=== PATIENT | male | born 1990 | race Caucasian/White ===

== ENCOUNTER → 2022-04-29 09:31 | Outpatient (BNVA) | payer SELFPAY | PROVIDERS: Visit Provider Nurse Practitioner Psychiatric/Mental Health | DX: Z51.81 Encounter for therapeutic drug level monitoring (principal); F11.20 Opioid dependence, uncomplicated | CPT/HCPCS: 80305; 99202 ==

== ENCOUNTER 2022-05-06 10:11 | Outpatient (REF) | payer OTHER, SELFPAY ==
[2022-05-06 11:26] LABS: Alanine Aminotransferase 20 U/L (0-40); Albumin Level 4.8 g/dL (3.5-5.0); Alkaline Phosphatase 55 U/L (39-117); Anion Gap 17 (12-20); Aspartate Amino Transferase 19 U/L (5-37); Bilirubin Total 0.8 mg/dL (0.0-1.0); Blood Urea Nitrogen 16 mg/dL (9-16); Calcium 10.1 mg/dL (8.4-10.2); Carbon Dioxide 26 mmol/L (22-29); Chloride 101 mmol/L (96-108); Estimated Glomerular Filt Rate > 60; Glucose Random 85 mg/dL (60-115); Potassium 4.5 mmol/L (3.3-5.1); Sodium 139 mmol/L (135-145)
[2022-05-06 11:51] LABS: HBc Num1 0.06 S/CO (0.00-0.79); HBsAGNum1 0.36 S/CO (0.00-0.99); HIV AB/AG Nonreactive (Nonreactive); HIV Num 1 0.06 S/CO (0.00-0.99); Hepatitis A Antibody IgM 0.15 Index (0-0.79); Hepatitis B Core Antibody Nonreactive (Nonreactive); Hepatitis B Surface Antigen Negative (Negative); ~HepC Num1 0.06 S/CO (0.00-0.79); ~Hepatitis A Antibody IgM Nonreactive (Nonreactive); ~Hepatitis B Surface Antibody REACTIVE (Nonreactive); ~Hepatitis C Antibody Nonreactive (Nonreactive)
== END 2022-05-06 10:12 | disposition home or self-care (01) ==
LOC: HO.LAB 10:11
PROVIDERS: Nurse Practitioner Psychiatric/Mental Health; Visit Provider Internal Medicine
DX: F11.20 Opioid dependence, uncomplicated (principal); Z51.81 Encounter for therapeutic drug level monitoring; Z79.899 Other long term (current) drug therapy
CPT/HCPCS: 36415; 80053; 86704; 86706; 86709; 86803; 87340; 87389; 99212

== ENCOUNTER → 2022-05-13 09:21 | Outpatient (BNVA) | payer OTHER, SELFPAY | PROVIDERS: Visit Provider Nurse Practitioner Psychiatric/Mental Health | DX: Z51.81 Encounter for therapeutic drug level monitoring (principal); F11.20 Opioid dependence, uncomplicated | CPT/HCPCS: 80305; 99212 ==

== ENCOUNTER → 2022-05-19 09:12 | Outpatient (BNVA) | payer OTHER, SELFPAY | PROVIDERS: Visit Provider Nurse Practitioner Psychiatric/Mental Health | DX: F11.20 Opioid dependence, uncomplicated (principal) | CPT/HCPCS: 99212 ==

== ENCOUNTER → 2022-05-26 09:21 | Outpatient (BNVA) | payer OTHER, SELFPAY | PROVIDERS: Visit Provider Nurse Practitioner Psychiatric/Mental Health | DX: Z51.81 Encounter for therapeutic drug level monitoring (principal); F11.20 Opioid dependence, uncomplicated | CPT/HCPCS: 99212 ==

== ENCOUNTER → 2022-06-08 09:22 | Outpatient (BNVA) | payer OTHER, SELFPAY | PROVIDERS: Visit Provider Nurse Practitioner Psychiatric/Mental Health | DX: Z51.81 Encounter for therapeutic drug level monitoring (principal); F11.20 Opioid dependence, uncomplicated | CPT/HCPCS: 80305; 99212 ==

== ENCOUNTER → 2022-06-29 10:34 | Outpatient (BNVA) | payer OTHER, SELFPAY | PROVIDERS: Visit Provider Nurse Practitioner Psychiatric/Mental Health | DX: F11.20 Opioid dependence, uncomplicated (principal) | CPT/HCPCS: 80305; 99212 ==

== ENCOUNTER → 2022-10-26 10:18 | Outpatient (BNVA) | payer OTHER, SELFPAY | PROVIDERS: Visit Provider Nurse Practitioner Psychiatric/Mental Health | DX: F14.20 Cocaine dependence, uncomplicated (principal); Z51.81 Encounter for therapeutic drug level monitoring; Z79.899 Other long term (current) drug therapy | CPT/HCPCS: 80305; 99212 ==

== ENCOUNTER → 2022-11-02 10:08 | Outpatient (BNVA) | payer OTHER, SELFPAY | PROVIDERS: Visit Provider Nurse Practitioner Psychiatric/Mental Health | DX: Z51.81 Encounter for therapeutic drug level monitoring (principal); F11.20 Opioid dependence, uncomplicated | CPT/HCPCS: 80305; 99212 ==

== ENCOUNTER → 2022-11-08 10:16 | Outpatient (BNVA) | payer OTHER, SELFPAY | PROVIDERS: Visit Provider Nurse Practitioner Psychiatric/Mental Health | DX: F11.90 Opioid use, unspecified, uncomplicated (principal); Z51.81 Encounter for therapeutic drug level monitoring; Z79.899 Other long term (current) drug therapy | CPT/HCPCS: 99212 ==

== ENCOUNTER → 2022-11-15 11:07 | Outpatient (BNVA) | payer OTHER, SELFPAY | PROVIDERS: Visit Provider Nurse Practitioner Psychiatric/Mental Health | DX: F11.20 Opioid dependence, uncomplicated (principal); Z51.81 Encounter for therapeutic drug level monitoring; Z79.899 Other long term (current) drug therapy | CPT/HCPCS: 99212 ==

== ENCOUNTER → 2022-11-21 11:15 | Outpatient (BNVA) | payer OTHER, SELFPAY | PROVIDERS: Visit Provider Nurse Practitioner Psychiatric/Mental Health | DX: Z51.81 Encounter for therapeutic drug level monitoring (principal); F11.20 Opioid dependence, uncomplicated | CPT/HCPCS: 80305; 99212 ==

== ENCOUNTER → 2022-11-28 11:13 | Outpatient (BNVA) | payer OTHER, SELFPAY | PROVIDERS: Visit Provider Nurse Practitioner Psychiatric/Mental Health | DX: F11.20 Opioid dependence, uncomplicated (principal) | CPT/HCPCS: 99212 ==

== ENCOUNTER → 2022-12-13 10:13 | Outpatient (BNVA) | payer OTHER, SELFPAY | PROVIDERS: Visit Provider Nurse Practitioner Psychiatric/Mental Health | DX: Z51.81 Encounter for therapeutic drug level monitoring (principal); F11.20 Opioid dependence, uncomplicated | CPT/HCPCS: 80305; 99212 ==

== ENCOUNTER → 2023-01-02 10:56 | Outpatient (BNVA) | payer OTHER, SELFPAY | PROVIDERS: Visit Provider Nurse Practitioner Psychiatric/Mental Health | DX: Z51.81 Encounter for therapeutic drug level monitoring (principal); F11.20 Opioid dependence, uncomplicated | CPT/HCPCS: 99212 ==

== ENCOUNTER 2023-01-17 11:14 | Outpatient (AMB) | payer OTHER, SELFPAY ==
--- NOTE | 2023-01-17 11:14 | MHC.OFFVIS ---
Intake Vital Signs 01/17/23 11:21 BP 118/64 Blood Pressure Location Lt radial Pulse 62 Pulse Source Pulse Oximeter Pulse Oximetry (%) 97 Oxygen Delivery Method Room Air Intake Visit Reasons: MAT Visit Intake Note: the patient presents for a mat visit Director Of Category Management Required: No Allergies No Known Allergies Allergy (Unverified 01/17/23 11:16) Do you need a note to return to daycare/school/sports/work: No HPI MAT Visit HPI Details Patient presents for follow-up. Still at the [facility], reports that he is up next for placement at a [facility]. Has noted a change in his mood since starting sertraline, feeling less indifferent in actually brighter and looking forward to things. Doing well with current Suboxone dose Review of Systems Const Reports as per HPI and Reports no additional complaints Physical Exam Vital Signs: Last Vital Signs Pulse 62 01/17/23 11:21 BP 118/64 01/17/23 11:21 Pulse Ox 97 01/17/23 11:21 Oxygen Delivery Method Room Air 01/17/23 11:21 Const General: cooperative and healthy appearing Psych Appearance: well kempt Speech and movement: Clear speech present Affect: normal affect Attitude: cooperative Thought process: Normal thought process present Thought content: Normal thought content present Insight: Good insight present (Psych) Judgement: Good judgement present (Psych) Results AMB 14 Panel Urine Drug Screen Urine Marijuana (THC) Negative Last Edit by Claudia Javed CMA on 01/17/23 11:22 Urine Cocaine Negative Last Edit by Claudia Javed CMA on 01/17/23 11:22 Urine Morphine Negative Last Edit by Claudia Javed CMA on 01/17/23 11:22 Urine Methamphetamine Negative Last Edit by Claudia Javed CMA on 01/17/23 11:22 Urine Amphetamine Negative Last Edit by Claudia Javed CMA on 01/17/23 11:22 Urine Benzodiazepine Negative Last Edit by Claudia Javed CMA on 01/17/23 11:22 Urine Barbiturates Negative Last Edit by Claudia Javed CMA on 01/17/23 11:22 Urine Methadone Negative Last Edit by Claudia Javed CMA on 01/17/23 11:22 Urine Buprenorphine Positive Last Edit by Claudia Javed CMA on 01/17/23 11:22 Urine Tricyclic Antidepressant Negative Last Edit by Claudia Javed CMA on 01/17/23 11:22 Urine MDMA Negative Last Edit by Claudia Javed CMA on 01/17/23 11:22 Urine Oxycodone Negative Last Edit by Claudia Javed CMA on 01/17/23 11:22 Urine Phencyclidine Negative Last Edit by Claudia Javed CMA on 01/17/23 11:22 Urine Propoxyphene Negative Last Edit by Claudia Javed CMA on 01/17/23 11:22 Results Reviewed Results Reviewed: Laboratory Last Values POC Urine Buprenorphine Positive 01/17/23 11:16 POC Urine Morphine Negative 01/17/23 11:16 POC Urine Oxycodone Negative 01/17/23 11:16 POC Urine Methadone Negative 01/17/23 11:16 POC Urine Propoxyphene Negative 01/17/23 11:16 POC Urine Barbiturates Negative 01/17/23 11:16 POC U Tricyclic Antidpr Negative 01/17/23 11:16 POC Urine PCP Negative 01/17/23 11:16 POC Ur Amphetamines Negative 01/17/23 11:16 POC Ur Methamphetamine Negative 01/17/23 11:16 POC Urine MDMA Negative 01/17/23 11:16 POC Ur Benzodiazepine Negative 01/17/23 11:16 POC Urine Cocaine Negative 01/17/23 11:16 POC Ur Marijuana (THC) Negative 01/17/23 11:16 Assessment & Plan Assessment & Plan (1) Opioid use disorder: Code(s): F11.90 - Opioid use, unspecified, uncomplicated Plan: Continue Suboxone at current dose Follow-up 3 weeks Orders: Orders AMB 14 Panel Urine Drug Screen 01/17/23 Z51.81 - Encounter for therapeutic drug level monitoring Medications: Refilled buprenorphine-naloxone 8-2 mg (Suboxone) 1 film sublingual Q24H 21 ea 0RF Coding Level of Care Code Est Pt Level 3 (46704) Diagnoses Opioid use disorder F11.90
[2023-01-17 11:21] VITALS: BP 118/64; PULSE 62; O2SAT 97
== END 2023-01-17 11:43 | disposition home or self-care (01) ==
LOC: HO.HCC 11:14
PROVIDERS: Visit Provider Nurse Practitioner Psychiatric/Mental Health
DX: F11.90 Opioid use, unspecified, uncomplicated (principal)
CPT/HCPCS: 99213

== ENCOUNTER → 2023-01-17 11:14 | Outpatient (BNVA) | payer OTHER, SELFPAY | PROVIDERS: Visit Provider Nurse Practitioner Psychiatric/Mental Health | DX: I50.30 Unspecified diastolic (congestive) heart failure (principal); I48.91 Unspecified atrial fibrillation; Z79.01 Long term (current) use of anticoagulants | CPT/HCPCS: 80305; 99212 ==

== ENCOUNTER 2023-02-07 10:59 | Outpatient (AMB) | payer OTHER, SELFPAY ==
--- NOTE | 2023-02-07 11:00 | A.OFFVIS_ITS ---
Intake Vital Signs 02/07/23 11:07 BP 122/70 Blood Pressure Location Lt radial Position Sitting Pulse 65 Pulse Source Pulse Oximeter Pulse Oximetry (%) 97 Oxygen Delivery Method Room Air Intake Visit Reasons: MAT Visit Intake Note: The patient presents for a mat visit Botany Technician Required: No Allergies No Known Allergies Allergy (Unverified 02/07/23 11:01) Do you need a note to return to daycare/school/sports/work: No HPI MAT Visit HPI Details Patient presents for follow up Currently at [facility]--past 2 weeks Would like to increase Sertraline dose Bright affect, feeling good with recovery in current treatment plan. Requesting to increase Suboxone dose Review of Systems Const Reports as per HPI and Reports no additional complaints Physical Exam Vital Signs: Last Vital Signs Pulse 65 02/07/23 11:07 BP 122/70 02/07/23 11:07 Pulse Ox 97 02/07/23 11:07 Oxygen Delivery Method Room Air 02/07/23 11:07 Const General: cooperative and healthy appearing Psych Appearance: well kempt Speech and movement: Clear speech present Affect: normal affect Attitude: cooperative Thought process: Normal thought process present Thought content: Normal thought content present Insight: Good insight present (Psych) Judgement: Good judgement present (Psych) Results AMB 14 Panel Urine Drug Screen Urine Marijuana (THC) Negative Last Edit by Claudia Javed CMA on 02/07/23 11:09 Urine Cocaine Negative Last Edit by Claudia Javed CMA on 02/07/23 11:09 Urine Morphine Negative Last Edit by Claudia Javed CMA on 02/07/23 11:09 Urine Methamphetamine Negative Last Edit by Claudia Javed CMA on 02/07/23 11:09 Urine Amphetamine Negative Last Edit by Claudia Javed CMA on 02/07/23 11:0 9 Urine Benzodiazepine Negative Last Edit by Claudia Javed CMA on 02/07/23 11:09 Urine Barbiturates Negative Last Edit by Claudia Javed CMA on 02/07/23 11: 09 Urine Methadone Negative Last Edit by Claudia Javed CMA on 02/07/23 11:09 Urine Buprenorphine Positive Last Edit by Claudia Javed CMA on 02/07/23 11 :09 Urine Tricyclic Antidepressant Negative Last Edit by Claudia Javed CMA on 02/07/23 11:09 Urine MDMA Negative Last Edit by Claudia Javed CMA on 02/07/23 11:09 Urine Oxycodone Negative Last Edit by Claudia Javed CMA on 02/07/23 11:09 Urine Phencyclidine Negative Last Edit by Claudia Javed CMA on 02/07/23 11 :09 Urine Propoxyphene Negative Last Edit by Claudia Javed CMA on 02/07/23 11: 09 Results Reviewed Results Reviewed: Laboratory Last Values POC Urine Buprenorphine Positive 02/07/23 11:01 POC Urine Morphine Negative 02/07/23 11:01 POC Urine Oxycodone Negative 02/07/23 11:01 POC Urine Methadone Negative 02/07/23 11:01 POC Urine Propoxyphene Negative 02/07/23 11:01 POC Urine Barbiturates Negative 02/07/23 11:01 POC U Tricyclic Antidpr Negative 02/07/23 11:01 POC Urine PCP Negative 02/07/23 11:01 POC Ur Amphetamines Negative 02/07/23 11:01 POC Ur Methamphetamine Negative 02/07/23 11:01 POC Urine MDMA Negative 02/07/23 11:01 POC Ur Benzodiazepine Negative 02/07/23 11:01 POC Urine Cocaine Negative 02/07/23 11:01 POC Ur Marijuana (THC) Negative 02/07/23 11:01 Assessment & Plan Assessment & Plan (1) Opioid use disorder: Code(s): F11.90 - Opioid use, unspecified, uncomplicated Plan: * Suboxone dose increased to 8 mg in the morning and 4 mg at 16:00 * Sertraline dose increased to 75 mg daily * Follow up 2 weeks Orders: Orders AMB 14 Panel Urine Drug Screen Today Z51.81 - Encounter for therapeutic drug level monitoring Medications: New buprenorphine-naloxone 4-1 mg (Suboxone) 1 film sublingually daily at 4pm; 14 ea 0RF Changed From buprenorphine-naloxone 8-2 mg (Suboxone) 1 film sublingual Q24H 21 ea 0RF To buprenorphine-naloxone 8-2 mg (Suboxone) 1 film sublingually daily at 8am; 14 ea 0RF From sertraline 50 mg PO DAILY 30 tabs 0RF To sertraline 75 mg (1.5 x 50 mg) PO DAILY 45 tabs 0RF Coding Level of Care Code Est Pt Level 4 (91996) Diagnoses Opioid use disorder F11.90
[2023-02-07 11:07] VITALS: BP 122/70; PULSE 65; O2SAT 97
== END 2023-02-07 11:38 | disposition home or self-care (01) ==
LOC: HO.HCC 10:59
PROVIDERS: Visit Provider Nurse Practitioner Psychiatric/Mental Health
DX: F11.90 Opioid use, unspecified, uncomplicated (principal); Z51.81 Encounter for therapeutic drug level monitoring
CPT/HCPCS: 99214

== ENCOUNTER → 2023-02-07 10:59 | Outpatient (BNVA) | payer OTHER, SELFPAY | PROVIDERS: Visit Provider Nurse Practitioner Psychiatric/Mental Health | DX: Z51.81 Encounter for therapeutic drug level monitoring (principal); F11.20 Opioid dependence, uncomplicated | CPT/HCPCS: 80305; 99212 ==

== ENCOUNTER 2023-02-21 11:04 | Outpatient (AMB) | payer OTHER, SELFPAY ==
--- NOTE | 2023-02-21 11:09 | A.OFFVIS_ITS ---
Intake Vital Signs 02/21/23 11:21 BP 106/70 Blood Pressure Location Lt radial Pulse 65 Pulse Source Pulse Oximeter Pulse Oximetry (%) 96 Oxygen Delivery Method Room Air Intake Visit Reasons: MAT Visit Intake Note: The patient presents for a mat visit Mechanical Fitter Required: No Allergies No Known Allergies Allergy (Unverified 02/21/23 11:09) Do you need a note to return to daycare/school/sports/work: No HPI MAT Visit HPI Details Patient presents for JORDON treatment follow up Job interview tomorrow at [employer] Last day of restriction today ?having sciatic pain needs to see primary care provider Shared that former roommate at current house last night from overdose Review of Systems Const Reports as per HPI and Reports no additional complaints Physical Exam Vital Signs: Last Vital Signs Pulse 65 02/21/23 11:21 BP 106/70 02/21/23 11:21 Pulse Ox 96 02/21/23 11:21 Oxygen Delivery Method Room Air 02/21/23 11:21 Const General: cooperative and healthy appearing Psych Appearance: well kempt Speech and movement: Clear speech present Affect: normal affect Attitude: cooperative Thought process: Normal thought process present Thought content: Normal thought content present Insight: Good insight present (Psych) Judgement: Good judgement present (Psych) Assessment & Plan Assessment & Plan (1) Opioid use disorder: Code(s): F11.90 - Opioid use, unspecified, uncomplicated Plan: * Continue suboxone at current dose * Relapse prevention discussion * follow up 3 weeks Medications: Refilled buprenorphine-naloxone 4-1 mg (Suboxone) 1 film sublingually daily at 4pm; 22 ea 0RF buprenorphine-naloxone 8-2 mg (Suboxone) 1 film sublingually daily at 8am; 22 ea 0RF Coding Level of Care Code Est Pt Level 3 (03320) Diagnoses Opioid use disorder F11.90
[2023-02-21 11:21] VITALS: BP 106/70; PULSE 65; O2SAT 96
== END 2023-02-21 12:57 | disposition home or self-care (01) ==
LOC: HO.HCC 11:04
PROVIDERS: Visit Provider Nurse Practitioner Psychiatric/Mental Health
DX: F11.90 Opioid use, unspecified, uncomplicated (principal)
CPT/HCPCS: 99213

== ENCOUNTER → 2023-02-21 11:04 | Outpatient (BNVA) | payer OTHER, SELFPAY | PROVIDERS: Visit Provider Nurse Practitioner Psychiatric/Mental Health | DX: F11.20 Opioid dependence, uncomplicated (principal) | CPT/HCPCS: 99212 ==

== ENCOUNTER 2023-03-15 13:07 | Outpatient (AMB) | payer OTHER, SELFPAY ==
--- NOTE | 2023-03-15 13:08 | MHC.OFFVIS ---
Intake Vital Signs 03/15/23 13:19 BP 116/70 Blood Pressure Location Lt radial Position Sitting Pulse 72 Pulse Source Pulse Oximeter Pulse Oximetry (%) 98 Oxygen Delivery Method Room Air Intake Visit Reasons: MAT Visit Intake Note: The patient presents for a mat visit Workers Compensation Claims Analyst Required: No Allergies No Known Allergies Allergy (Unverified 03/15/23 13:09) Do you need a note to return to daycare/school/sports/work: No HPI MAT Visit HPI Details Pt presents for OUD treatment follow up Currently being prescribed Suboxone 12 mg daily. Denies any side effects related to medication. Feel stable on this dose. Mood continues to be stable, tolerating sertraline. Continues to interview for jobs, concerned about his record and being turned away from certain positions so he is avoiding certain jobs that are of interest to him Feeling positive about his recovery, future oriented. Review of Systems Const Reports as per HPI and Reports no additional complaints Physical Exam Vital Signs: Last Vital Signs Pulse 72 03/15/23 13:19 BP 116/70 03/15/23 13:19 Pulse Ox 98 03/15/23 13:19 Oxygen Delivery Method Room Air 03/15/23 13:19 Const General: cooperative and healthy appearing Psych Appearance: well kempt Speech and movement: Clear speech present Affect: normal affect Attitude: cooperative Thought process: Normal thought process present Thought content: Normal thought content present Insight: Good insight present (Psych) Judgement: Good judgement present (Psych) Results AMB 14 Panel Urine Drug Screen Urine Marijuana (THC) Negative Last Edit by Claudia Javed CMA on 03/15/23 13:20 Urine Cocaine Negative Last Edit by Claudia Javed CMA on 03/15/23 13:20 Urine Morphine Negative Last Edit by Claudia Javed CMA on 03/15/23 13:20 Urine Methamphetamine Negative Last Edit by Claudia Javed CMA on 03/15/23 13:20 Urine Amphetamine Negative Last Edit by Claudia Javed CMA on 03/15/23 13:20 Urine Benzodiazepine Negative Last Edit by Claudia Javed CMA on 03/15/23 13:20 Urine Barbiturates Negative Last Edit by Claudia Javed CMA on 03/15/23 13:20 Urine Methadone Negative Last Edit by Claudia Javed CMA on 03/15/23 13:20 Urine Buprenorphine Positive Last Edit by Claudia Javed CMA on 03/15/23 13:20 Urine Tricyclic Antidepressant Negative Last Edit by Claudia Javed CMA on 03/15/23 13:20 Urine MDMA Negative Last Edit by Claudia Javed CMA on 03/15/23 13:20 Urine Oxycodone Negative Last Edit by Claudia Javed CMA on 03/15/23 13:20 Urine Phencyclidine Negative Last Edit by Claudia Javed CMA on 03/15/23 13:20 Urine Propoxyphene Negative Last Edit by Claudia Javed CMA on 03/15/23 13:20 Results Reviewed Results Reviewed: Laboratory Last Values POC Urine Buprenorphine Positive 03/15/23 13:10 POC Urine Morphine Negative 03/15/23 13:10 POC Urine Oxycodone Negative 03/15/23 13:10 POC Urine Methadone Negative 03/15/23 13:10 POC Urine Propoxyphene Negative 03/15/23 13:10 POC Urine Barbiturates Negative 03/15/23 13:10 POC U Tricyclic Antidpr Negative 03/15/23 13:10 POC Urine PCP Negative 03/15/23 13:10 POC Ur Amphetamines Negative 03/15/23 13:10 POC Ur Methamphetamine Negative 03/15/23 13:10 POC Urine MDMA Negative 03/15/23 13:10 POC Ur Benzodiazepine Negative 03/15/23 13:10 POC Urine Cocaine Negative 03/15/23 13:10 POC Ur Marijuana (THC) Negative 03/15/23 13:10 Assessment & Plan Assessment & Plan (1) Opioid use disorder: Code(s): F11.90 - Opioid use, unspecified, uncomplicated Plan: Continue suboxone at current dose Relapse prevention discussion follow up 3 weeks Orders: Orders AMB 14 Panel Urine Drug Screen 03/15/23 Z51.81 - Encounter for therapeutic drug level monitoring Medications: Refilled buprenorphine-naloxone 4-1 mg (Suboxone) 1 film sublingually daily at 4pm; 22 ea 0RF buprenorphine-naloxone 8-2 mg (Suboxone) 1 film sublingually daily at 8am; 22 ea 0RF sertraline 75 mg (1.5 x 50 mg) PO DAILY 45 tabs 0RF Coding Level of Care Code Est Pt Level 3 (95315) Diagnoses Opioid use disorder F11.90
[2023-03-15 13:19] VITALS: BP 116/70; PULSE 72; O2SAT 98
== END 2023-03-15 13:48 | disposition home or self-care (01) ==
LOC: HO.HCC 13:07
PROVIDERS: Visit Provider Nurse Practitioner Psychiatric/Mental Health
DX: F11.90 Opioid use, unspecified, uncomplicated (principal)
CPT/HCPCS: 99213

== ENCOUNTER → 2023-03-15 13:07 | Outpatient (BNVA) | payer OTHER, SELFPAY | PROVIDERS: Visit Provider Nurse Practitioner Psychiatric/Mental Health | DX: F11.20 Opioid dependence, uncomplicated (principal) | CPT/HCPCS: 80305; 99212 ==

== ENCOUNTER 2023-04-04 10:47 | Outpatient (AMB) | payer OTHER, SELFPAY ==
[2023-04-04 11:03] VITALS: BP 110/60; PULSE 70; O2SAT 99
--- NOTE | 2023-04-04 11:03 | MHC.OFFVIS ---
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--he is very excited about this discussed how to remain connected to recovery community and 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 Review of Systems Const Reports as per HPI and Reports no additional complaints Physical Exam Vital Signs: Last Vital Signs Pulse 70 04/04/23 11:03 BP 110/60 04/04/23 11:03 Pulse Ox 99 04/04/23 11:03 Const General: cooperative and healthy appearing Psych Appearance: well kempt Speech and movement: Clear speech present Affect: normal affect Attitude: cooperative Thought process: Normal thought process present Thought content: Normal thought content present Insight: Good insight present (Psych) Judgement: Good judgement present (Psych) Assessment & Plan Assessment & Plan (1) Opioid use disorder: Code(s): F11.90 - Opioid use, unspecified, uncomplicated Plan: Continue suboxone at current dose Relapse prevention discussion follow up 3 weeks Medications: Refilled buprenorphine-naloxone 8-2 mg (Suboxone) 1 film sublingually daily at 8am; 22 ea 0RF buprenorphine-naloxone 4-1 mg (Suboxone) 1 film sublingually daily at 4pm; 22 ea 0RF Coding Level of Care Code Est Pt Level 3 (47535) Diagnoses Opioid use disorder F11.90
== END 2023-04-04 11:21 | disposition home or self-care (01) ==
LOC: HO.HCC 10:47
PROVIDERS: Visit Provider Nurse Practitioner Psychiatric/Mental Health
DX: F11.90 Opioid use, unspecified, uncomplicated (principal)
CPT/HCPCS: 99213

== ENCOUNTER → 2023-04-04 10:47 | Outpatient (BNVA) | payer OTHER, SELFPAY | PROVIDERS: Visit Provider Nurse Practitioner Psychiatric/Mental Health | DX: F11.20 Opioid dependence, uncomplicated (principal); Z51.81 Encounter for therapeutic drug level monitoring; Z79.899 Other long term (current) drug therapy | CPT/HCPCS: 99212 ==

== ENCOUNTER 2023-04-25 11:38 | Outpatient (AMB) | payer OTHER, SELFPAY ==
--- NOTE | 2023-04-25 11:42 | A.OFFVIS_ITS ---
Intake Vital Signs 04/25/23 11:46 BP 102/70 Blood Pressure Location Lt radial Position Sitting Pulse 64 Pulse Source Pulse Oximeter Pulse Oximetry (%) 97 Oxygen Delivery Method Room Air Intake Visit Reasons: mat visit Intake Note: the patient presents for a mat visit Cigar Bander Required: No Allergies No Known Allergies Allergy (Unverified 04/25/23 11:46) Do you need a note to return to daycare/school/sports/work: No HPI mat visit HPI Details Patient presents for follow up Currently prescribed Suboxone 20mg daily Started his new job, has been enjoying it. Still at the [employer]. Recently applied for rapid rehousing Review of Systems Const Reports as per HPI and Reports no additional complaints Physical Exam Vital Signs: Last Vital Signs Pulse 64 04/25/23 11:46 BP 102/70 04/25/23 11:46 Pulse Ox 97 04/25/23 11:46 Oxygen Delivery Method Room Air 04/25/23 11:46 Const General: cooperative and healthy appearing Psych Appearance: well kempt Speech and movement: Clear speech present Affect: normal affect Attitude: cooperative Thought process: Normal thought process present Thought content: Normal thought content present Insight: Good insight present (Psych) Judgement: Good judgement present (Psych) Assessment & Plan Assessment & Plan (1) Opioid use disorder: Code(s): F11.90 - Opioid use, unspecified, uncomplicated Plan: * Continue suboxone at current dose * Relapse prevention discussion * follow up 3 weeks Medications: Changed From buprenorphine-naloxone 4-1 mg (Suboxone) 1 film sublingually daily at 4pm; 22 ea 0RF To buprenorphine-naloxone 4-1 mg (Suboxone) daily at 4pm 1 film sublingual DAILY 22 ea 0RF Refilled buprenorphine-naloxone 8-2 mg (Suboxone) 1 film sublingually daily at 8am; 22 ea 0RF Coding Level of Care Code Est Pt Level 3 (61973) Diagnoses Opioid use disorder F11.90
[2023-04-25 11:46] VITALS: BP 102/70; PULSE 64; O2SAT 97
== END 2023-04-25 12:13 | disposition home or self-care (01) ==
PROVIDERS: Visit Provider Nurse Practitioner Psychiatric/Mental Health
DX: F11.90 Opioid use, unspecified, uncomplicated (principal)
CPT/HCPCS: 99213

== ENCOUNTER → 2023-04-25 11:38 | Outpatient (BNVA) | payer OTHER, SELFPAY | PROVIDERS: Visit Provider Nurse Practitioner Psychiatric/Mental Health | DX: F11.20 Opioid dependence, uncomplicated (principal) | CPT/HCPCS: 99212 ==

== ENCOUNTER 2023-05-16 11:23 | Outpatient (AMB) | payer OTHER, SELFPAY ==
--- NOTE | 2023-05-16 11:36 | A.OFFVIS_ITS ---
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 Review of Systems Const Reports as per HPI and Reports no additional complaints Physical Exam Const General: cooperative and healthy appearing Psych Appearance: well kempt Speech and movement: Clear speech present Affect: normal affect Attitude: cooperative Thought process: Normal thought process present Thought content: Normal thought content present Insight: Good insight present (Psych) Judgement: Good judgement present (Psych) Assessment & Plan Assessment & Plan (1) Opioid use disorder: Code(s): F11.90 - Opioid use, unspecified, uncomplicated Plan: * continus suboxone at current dose * follow up 4 weeks Medications: Changed From buprenorphine-naloxone 8-2 mg 1 film sublingually daily at 8am; 22 ea 0RF To buprenorphine-naloxone 8-2 mg (Suboxone) 1 film sublingually daily at 8am; 30 ea 0RF Refilled buprenorphine-naloxone 4-1 mg (Suboxone) daily at 4pm 1 film sublingual DAILY 30 ea 0RF Coding Level of Care Code Est Pt Level 3 (00795) Diagnoses Opioid use disorder F11.90
== END 2023-05-16 12:06 | disposition home or self-care (01) ==
PROVIDERS: Visit Provider Nurse Practitioner Psychiatric/Mental Health
DX: F11.90 Opioid use, unspecified, uncomplicated (principal)
CPT/HCPCS: 99213

== ENCOUNTER → 2023-05-16 11:23 | Outpatient (BNVA) | payer OTHER, SELFPAY | PROVIDERS: Visit Provider Nurse Practitioner Psychiatric/Mental Health | DX: F11.20 Opioid dependence, uncomplicated (principal); Z51.81 Encounter for therapeutic drug level monitoring; Z79.899 Other long term (current) drug therapy | CPT/HCPCS: 99212 ==

== ENCOUNTER 2023-06-13 10:42 | Outpatient (AMB) | payer OTHER, SELFPAY ==
[2023-06-13 10:56] VITALS: BP 108/70; PULSE 75; O2SAT 96
--- NOTE | 2023-06-13 10:56 | A.OFFVIS_ITS ---
Intake Vital Signs 06/13/23 10:56 BP 108/70 Blood Pressure Location Lt radial Position Sitting Pulse 75 Pulse Source Pulse Oximeter Pulse Oximetry (%) 96 Oxygen Delivery Method Room Air Intake Visit Reasons: mat visit Intake Note: the patient presents for a mat visit Cuff Runner Required: No Allergies No Known Allergies Allergy (Unverified 06/13/23 10:57) Do you need a note to return to daycare/school/sports/work: No HPI mat visit HPI Details Patient presents for JORDON treatment follow up Still working fulltime 6 months in recovery at the [place] the [place] Appt in the next 2 weeks for rapid rehousing Review of Systems Const Reports as per HPI and Reports no additional complaints Physical Exam Vital Signs: Last Vital Signs Pulse 75 06/13/23 10:56 BP 108/70 06/13/23 10:56 Pulse Ox 96 06/13/23 10:56 Oxygen Delivery Method Room Air 06/13/23 10:56 Const General: cooperative and healthy appearing Psych Appearance: well kempt Speech and movement: Clear speech present Affect: normal affect Attitude: cooperative Thought process: Normal thought process present Thought content: Normal thought content present Insight: Good insight present (Psych) Judgement: Good judgement present (Psych) Assessment & Plan Assessment & Plan (1) Opioid use disorder: Code(s): F11.90 - Opioid use, unspecified, uncomplicated Plan: * continus suboxone at current dose * follow up 4 weeks Medications: Refilled buprenorphine-naloxone 8-2 mg (Suboxone) 1 film sublingually daily at 8am; 30 ea 0RF buprenorphine-naloxone 4-1 mg (Suboxone) daily at 4pm 1 film sublingual DAILY 30 ea 0RF Coding Level of Care Code Est Pt Level 3 (73287) Diagnoses Opioid use disorder F11.90
== END 2023-06-13 11:27 | disposition home or self-care (01) ==
PROVIDERS: Visit Provider Nurse Practitioner Psychiatric/Mental Health
DX: F11.90 Opioid use, unspecified, uncomplicated (principal)
CPT/HCPCS: 99213

== ENCOUNTER → 2023-06-13 10:42 | Outpatient (BNVA) | payer OTHER, SELFPAY | PROVIDERS: Visit Provider Nurse Practitioner Psychiatric/Mental Health | DX: F11.20 Opioid dependence, uncomplicated (principal) | CPT/HCPCS: 99212 ==

== ENCOUNTER 2023-07-11 11:45 | Outpatient (AMB) | payer OTHER, SELFPAY ==
[2023-07-11 10:30] VITALS: BP 115/70; PULSE 99; RESP 19; O2SAT 100
--- NOTE | 2023-07-11 12:12 | MHC.AM.SUB ---
Intake Vital Signs 07/11/23 10:30 BP 115/70 Blood Pressure Location Rt brachial Position Sitting Respiration 19 Pulse 99 Pulse Source Pulse Oximeter Pulse Oximetry (%) 100 Oxygen Delivery Method Room Air Intake Visit Reasons: mat visit Allergies No Known Allergies Allergy (Unverified 06/13/23 10:57) HPI mat visit HPI Details Patient presents for OUD treatment follow up Continues to do well with recovery Working FT Spent holidays with his family COUNTS INCLUDE 234 BEDS AT THE [facility] Medical History (Updated 07/13/23 @ 12:54 by Silvia Skelton CNP) Opioid use disorder Review of Systems Const Reports as per HPI and Reports no additional complaints Physical Exam Vital Signs: Last Vital Signs Pulse 99 07/11/23 10:30 Resp 19 07/11/23 10:30 BP 115/70 07/11/23 10:30 Pulse Ox 100 07/11/23 10:30 Oxygen Delivery Method Room Air 07/11/23 10:30 Const General: cooperative and healthy appearing Psych Appearance: well kempt Speech and movement: Clear speech present Affect: normal affect Attitude: cooperative Thought process: Normal thought process present Thought content: Normal thought content present Insight: Good insight present (Psych) Judgement: Good judgement present (Psych) Assessment & Plan Assessment & Plan (1) Opioid use disorder, severe, in early remission, dependence: Code(s): F11.21 - Opioid dependence, in remission Plan: continue suboxone at current dose. follow up one month encouraged to call office if needed before next appt. Medications: Refilled buprenorphine-naloxone 4-1 mg (Suboxone) daily at 4pm 1 film sublingual DAILY 30 ea 0RF buprenorphine-naloxone 8-2 mg (Suboxone) 1 film sublingually daily at 8am; 30 ea 0RF Coding Level of Care Code Est Pt Level 3 (02067) Diagnoses Opioid use disorder, severe, in early remission, dependence F11.21
== END 2023-07-11 12:25 | disposition home or self-care (01) ==
PROVIDERS: Visit Provider Nurse Practitioner Psychiatric/Mental Health
DX: F11.21 Opioid dependence, in remission (principal)
CPT/HCPCS: 99213

== ENCOUNTER → 2023-07-11 11:45 | Outpatient (BNVA) | payer OTHER, SELFPAY | PROVIDERS: Visit Provider Nurse Practitioner Psychiatric/Mental Health | DX: F11.20 Opioid dependence, uncomplicated (principal) | CPT/HCPCS: 99212 ==

== ENCOUNTER 2023-08-17 14:48 | Outpatient (AMB) | payer OTHER, SELFPAY ==
--- NOTE | 2023-08-17 14:50 | MHC.AM.SUB ---
Intake Vital Signs 08/17/23 14:58 BP 118/78 Blood Pressure Location Lt radial Position Sitting Pulse 96 Pulse Source Pulse Oximeter Pulse Oximetry (%) 97 Oxygen Delivery Method Room Air Intake Visit Reasons: mat visit Intake Note: the patient presents for a mat visit Enforcement Manager Required: No Allergies No Known Allergies Allergy (Unverified 08/17/23 14:59) Do you need a note to return to daycare/school/sports/work: No HPI mat visit HPI Details Pt presents for MAT follow up He reports he just moved into his apartment from a long-term house last week He is attending AA and NA on Wednesdays and He is feeling strong in his recovery at this time, working FT at [employer] No concerns today, tolerating 12mg suboxone daily [facility] Medical History (Updated 07/13/23 @ 12:54 by Silvia Skelton CNP) Opioid use disorder Review of Systems Const Reports as per HPI Physical Exam Vital Signs: Last Vital Signs Pulse 96 08/17/23 14:58 BP 118/78 08/17/23 14:58 Pulse Ox 97 08/17/23 14:58 Oxygen Delivery Method Room Air 08/17/23 14:58 Const General: cooperative and no acute distress Resp Effort & Inspection: normal respiratory effort and able to speak in complete sentences Skin General skin exam: no rashes or lesions noted Psych Appearance: grossly normal Mental Status: mental status grossly normal Speech and movement: Normal speech and movement present Affect: normal affect Thought content: Normal thought content present Insight: Good insight present (Psych) Judgement: Good judgement present (Psych) Assessment & Plan Assessment & Plan (1) Opioid use disorder, severe, in early remission, dependence: Code(s): F11.21 - Opioid dependence, in remission Plan: -Mass pat reviewed -Refilled suboxone -Discussed recovery supports -Follow up 4 weeks Medications: Refilled buprenorphine-naloxone 4-1 mg (Suboxone) daily at 4pm 1 film sublingual DAILY 30 ea 0RF buprenorphine-naloxone 8-2 mg (Suboxone) 1 film sublingually daily at 8am; 30 ea 0RF Coding Level of Care Code Est Pt Level 3 (99610) Diagnoses Opioid use disorder, severe, in early remission, dependence F11.21
[2023-08-17 14:58] VITALS: BP 118/78; PULSE 96; O2SAT 97
== END 2023-08-17 15:15 | disposition home or self-care (01) ==
PROVIDERS: PCP Nurse Practitioner Family; Visit Provider Nurse Practitioner Family
DX: F11.21 Opioid dependence, in remission (principal)
CPT/HCPCS: 99213

== ENCOUNTER → 2023-08-17 14:48 | Outpatient (BNVA) | payer OTHER, SELFPAY | PROVIDERS: PCP Nurse Practitioner Family; Visit Provider Nurse Practitioner Family | DX: F11.21 Opioid dependence, in remission (principal) | CPT/HCPCS: 99212 ==